=== PATIENT | female | born 1980 | race African-American/Black ===

== ENCOUNTER 2016-10-31 04:38 | Emergency (ER) | payer MEDICAID ==
[~2016-10-31] VITALS: Ht 177.8 cm; Wt 100.0 kg
[~2016-10-31 04:38] MED LIST: BIAXIN 500MG T500 MG PO; CARAFATE 1GM1 G PO; CEFTIN 250250 MG/TAB PO; CEPHALEXIN500 M1 PO; COLACE 100100 MG/CAP PO; DIFLUCAN150 MG PO; DOXYCYCLINE 10100 MG PO; DOXYCYCLINE100 M2 PO; FLAGYL500 MG PO; FLEXERIL 1010 MG/TAB PO; LEVBID0.375 MG PO; LORTAB 5/500 501 TAB PO; MACROBID100 MG PO; NEXIUM 40MG40 MG PO; NO HOME MEDICATIONS; NORCO 325 MG-51 TAB PO; NORCO 325 MG-7.1 TAB PO; PEPCID 20MG TAB20 MG PO; PHENERGAN 25 TA25 MG PO; PRENATAL VITAMI1 TA5 PO; PRILOSEC 20MG20 MG PO; PROBIOTIC FORMU1 CAP PO; PROMETHAZINE12.5 M5 PO; PROTONIX 40MG T40 MG PO; PYRIDIUM200 M1 PO; TAMIFLU 75MG75 MG PO; ULTRAM 50MG TAB50 MG PO; ZOFRAN 4MG T4 MG/TAB PO; ZOFRAN ODT4 MG PO
[2016-10-31 04:40] VITALS: BP 157/99; TEMP 97.5
[2016-10-31] MEDS ORDERED: VITAMIN D 400400 IU PO (04:44)
[2016-10-31] MEDS ORDERED: DOXYCYCLINE 10100 MG PO (05:05)
[2016-10-31 05:10] VITALS: PULSE 54
[2016-10-31 07:46] LABS: CHLAMYDIA/TRACH by PCR Female NOT DETECTED; NEISSERIA GON by PCR Female NOT DETECTED
== END 2016-10-31 05:10 | disposition home or self-care (01) ==
LOC: COL.ER 04:38
PROVIDERS: Family Medicine
DX: N76.0 Acute vaginitis (principal)
CPT/HCPCS: J0696

== ENCOUNTER 2021-01-27 22:21 | Emergency (ER) | payer SELFPAY ==
[~2021-01-27] VITALS: Ht 182.9 cm; Wt 102.3 kg
[~2021-01-27 22:21] MED LIST changes: +VITAMIN D 400400 IU PO
[2021-01-27 23:00] VITALS: TEMP 97
[2021-01-28 00:03] LABS: COLLECTION METHOD CLEAN CATCH
[2021-01-28 00:12] LABS: MUCOUS Present /lpf; PH 5 (5-8); SQUAMOUS EPITHELIAL 0-2 /hpf; URINE APPEARANCE Clear; URINE BACTERIA None Seen /hpf; URINE BILIRUBIN Negative (NEGATIVE); URINE BLOOD Negative (NEGATIVE); URINE COLOR Yellow; URINE GLUCOSE Negative (NEGATIVE); URINE KETONE Negative (NEGATIVE); URINE LEUKOCYTE ESTERASE Negative (NEGATIVE); URINE NITRATE Negative (NEGATIVE); URINE PROTEIN(semi-quant) Negative (NEGATIVE); URINE RBC None Seen /hpf; URINE UROBILINOGEN Negative (NEGATIVE)
[2021-01-28 02:20] VITALS: BP 154/78; PULSE 76
== END 2021-01-28 02:20 | disposition home or self-care (01) ==
LOC: COL.ER 22:21
PROVIDERS: Nurse Practitioner Primary Care
DX: R30.0 Dysuria (principal); F17.210 Nicotine dependence, cigarettes, uncomplicated; Z20.2 Contact with and (suspected) exposure to infections with a predominantly sexual mode of transmission; Z32.02 Encounter for pregnancy test, result negative

== ENCOUNTER 2021-03-03 09:19 | Emergency (ER) | payer SELFPAY ==
[~2021-03-03] VITALS: Ht 177.8 cm; Wt 100.0 kg
[2021-03-03 09:33] VITALS: TEMP 97.1
[2021-03-03 10:23] LABS: STREP SCREEN NEGATIVE
[2021-03-03 11:34] VITALS: BP 142/108; PULSE 55
== END 2021-03-03 11:34 | disposition home or self-care (01) ==
LOC: COL.ER 09:19
PROVIDERS: Emergency Medicine
DX: B34.9 Viral infection, unspecified (principal); Z20.822 Contact with and (suspected) exposure to COVID-19

== ENCOUNTER 2021-04-10 14:11 | Emergency (ER) | payer SELFPAY ==
[~2021-04-10] VITALS: Ht 182.9 cm; Wt 100.0 kg
[2021-04-10 14:49] VITALS: TEMP 98.6
[2021-04-10 15:35] VITALS: BP 123/81; PULSE 80
== END 2021-04-10 15:42 | disposition home or self-care (01) ==
LOC: COL.ER 14:11
DX: U07.1 COVID-19 (principal)

== ENCOUNTER 2021-11-03 21:44 | Emergency (ER) | payer SELFPAY ==
[~2021-11-03] VITALS: Ht 182.9 cm; Wt 102.7 kg
[2021-11-03 21:58] VITALS: TEMP 97.1
[2021-11-03 22:20] LABS: COLLECTION METHOD CLEAN CATCH
[2021-11-03] MEDS ORDERED: DOXYCYCLINE 10100 MG PO (22:28)
[2021-11-03] MEDS ORDERED: FLAGYL500 MG PO (22:28)
[2021-11-03 22:40] LABS: SQUAMOUS EPITHELIAL 0-2 /hpf (0-10); URINE BACTERIA Rare /hpf (NONE SEEN)
[2021-11-03 22:41] LABS: URINE COLOR Yellow (YELLOW)
[2021-11-03 22:42] LABS: URINE APPEARANCE Clear (CLEAR/HAZY); URINE BLOOD Negative (NEGATIVE); URINE GLUCOSE Negative (NEGATIVE); URINE KETONE Negative (NEGATIVE); URINE NITRATE Negative (NEGATIVE); URINE PROTEIN(semi-quant) Negative (NEGATIVE); URINE UROBILINOGEN 0.2 E.U/dL (0.2-1.0)
[2021-11-03 22:59] VITALS: BP 144/80; PULSE 78
== END 2021-11-03 22:59 | disposition home or self-care (01) ==
LOC: COL.ER 21:44
PROVIDERS: Emergency Medicine
DX: N72 Inflammatory disease of cervix uteri (principal); Z28.310 Unvaccinated for COVID-19
CPT/HCPCS: J0696

== ENCOUNTER 2023-09-05 14:30 | Emergency (ER) | payer OTHER ==
[~2023-09-05] VITALS: Ht 180.3 cm; Wt 104.5 kg
[2023-09-05 14:34] VITALS: TEMP 97.6
[2023-09-05 16:37] LABS: COLLECTION METHOD CLEAN CATCH
[2023-09-05 16:48] LABS: URINE APPEARANCE CLEAR (CLEAR/HAZY); URINE BLOOD NEGATIVE (NEGATIVE); URINE COLOR YELLOW (YELLOW); URINE GLUCOSE NEGATIVE (NEGATIVE); URINE KETONE NEGATIVE (NEGATIVE); URINE NITRATE NEGATIVE (NEGATIVE); URINE PROTEIN(semi-quant) NEGATIVE (NEGATIVE); URINE UROBILINOGEN 0.2 E.U/dL (0.2-1.0)
[2023-09-05] MEDS ORDERED: cefTRIAXone 250 MG,Lidocaine PF 1% 0.9 ML IM ONE (18:00)
[2023-09-05] MEDS ORDERED: metroNIDAZOLE 250 MG TAB PO ONE (18:00)
[2023-09-05 19:10] VITALS: BP 132/119; PULSE 78
== END 2023-09-05 19:20 | disposition home or self-care (01) ==
LOC: COL.ER 14:30
PROVIDERS: Nurse Practitioner
DX: N76.0 Acute vaginitis (principal)
CPT/HCPCS: J0696